=== PATIENT | male | born 1975 | race African-American/Black ===

== ENCOUNTER 2024-11-13 15:56 | Outpatient (OUT) | payer OTHER, SELFPAY ==
--- NOTE | 2024-11-13 15:59 | MR_ITS ---
The [address] [address] Patient Name: JOSE GARCIA MRN: [id number] date: 1975 Sex: M Assigned Patient Location: MRI Current Patient Location: Accession/Order Number: [id number] Exam Date: 11/13/2024 16:10 Report Date: 11/16/2024 09:49 At the request of: NON-STAFF PHYSICIAN Procedure: MR hand RT wo con EXAM: MR hand RT wo con REASON FOR EXAM: Sprain Of Right Wrist And Hand. TECHNIQUE: Multiplanar, multisequence imaging of the right hand was performed without contrast COMPARISON: None available. FINDINGS: Study degraded by motion. Acute or subacute nondisplaced partially healed third metacarpal fracture with bony callus formation and partial bony bridging. There is surrounding periosteal edema. The remaining bone marrow signal is without fracture or osteonecrosis. Radiocarpal and intercarpal alignments appear maintained. The carpal tunnel is mildly crowded. The median nerve is nonedematous. The visualized flexor and extensor tendons are unremarkable. MR/MR hand RT wo con IMPRESSION: 1. Study degraded by motion. 2. Subacute nondisplaced third metacarpal fracture. Electronically authenticated by: ASHLEY FAYE Date: 11/16/2024 09:49
== END 2024-11-13 15:57 | disposition home or self-care (01) ==
LOC: MRI 15:56
DX: S63.8X1A Sprain of other part of right wrist and hand, initial encounter (principal); S62.392D Other fracture of third metacarpal bone, right hand, subsequent encounter for fracture with routine healing
CPT/HCPCS: 73218